=== PATIENT | female | born 2000 | race Caucasian/White ===

== ENCOUNTER → 2024-03-23 14:34 | Outpatient (REF) | payer OTHER, SELFPAY | LOC: RAD 14:34 | PROVIDERS: ATTENDING PHYSICIAN Nurse Practitioner Family | DX: R07.89 Other chest pain (principal) | CPT/HCPCS: 71046 ==

== ENCOUNTER → 2024-12-07 13:54 | Outpatient (REF) | payer OTHER, SELFPAY | LOC: RCS 13:54 | PROVIDERS: FAMILY PHYSICIAN Nurse Practitioner Family | DX: R42 Dizziness and giddiness (principal); R00.2 Palpitations | CPT/HCPCS: 93306 ==

== ENCOUNTER 2025-01-25 06:32 | Outpatient (RCR) | payer OTHER, SELFPAY | END 2025-01-25 23:59 | disposition home or self-care (01) | LOC: RPT 06:32 | PROVIDERS: ATTENDING PHYSICIAN Nurse Practitioner Family | DX: M54.12 Radiculopathy, cervical region (principal); M79.602 Pain in left arm; Z73.6 Limitation of activities due to disability; M62.81 Muscle weakness (generalized); H53.8 Other visual disturbances; U09.9 Post COVID-19 condition, unspecified; G90.A Postural orthostatic tachycardia syndrome [POTS]; R42 Dizziness and giddiness; R26.89 Other abnormalities of gait and mobility | CPT/HCPCS: 97162; 97530 ==